=== PATIENT | female | born 1965 | race Caucasian/White ===

== ENCOUNTER 2021-05-03 10:20 | Outpatient (CLI) | payer BC | END 2021-05-03 23:59 | disposition home or self-care (01) | LOC: WOU 10:20 | PROVIDERS: ATTEND Specialist | DX: S61.412D Laceration without foreign body of left hand, subsequent encounter (principal); W26.2XXD Contact with edge of stiff paper, subsequent encounter; I69.398 Other sequelae of cerebral infarction; G24.01 Drug induced subacute dyskinesia | CPT/HCPCS: G0463 ==